=== PATIENT | female | born 1935 | race Caucasian/White ===

== ENCOUNTER 2016-10-08 14:44 | Emergency (ER) | payer OTHER ==
[2016-10-08] MEDS ORDERED: B & O 15A SUPP PR ONE (15:40)
[2016-10-08] MEDS ORDERED: PYRIDIUM PO ONE (15:41)
[2016-10-08 15:43] LABS: MANUAL DIFF NEEDED? NO; URINE SOURCE CATH
--- NOTE | 2016-10-08 15:46 | PROVIDER DOCUMENTATION ---
HPI-Female /OB/Breast - General Chief Complaint: Abdominal Pain Stated Complaint: BLADDER INFECTION Time Seen by Provider: 10/08/16 15:08 Source: reports: patient, family Allergies/Adverse Reactions: Patient Allergies Allergy/AdvReac Type Severity Reaction Status Date / Time codeine [Codeine] Allergy Severe ITCHING Verified 10/08/16 15:16 Penicillins Allergy Severe RASH Verified 10/08/16 15:16 Home Medications: Home Medication List Medication Instructions Recorded Confirmed Last Taken Type Atenolol [Tenormin] 100 mg PO QAM 03/06/16 10/08/16 10/08/16 History Cyclobenzaprine [Flexeril] 5 mg PO BID 03/06/16 10/08/16 10/08/16 History Diltiazem HCl [Cardizem] 120 mg PO QAM 03/06/16 10/08/16 10/08/16 History Losartan Potassium [Cozaar] 50 mg PO QAM 03/06/16 10/08/16 10/08/16 History Tolterodine [Detrol] 2 mg PO BID 03/06/16 10/08/16 10/08/16 History Triamterene/Hctz [Dyazide] 1 each PO DAILY 03/06/16 10/08/16 10/08/16 History Amlodipine [Norvasc] 10 mg PO DAILY #90 tablet 03/09/16 10/08/16 10/08/16 Rx Aspirin 325 mg PO DAILY #30 tablet 03/09/16 10/08/16 10/08/16 Rx Omeprazole [Prilosec] 20 mg PO DAILY@0700 #90 capsule 03/09/16 10/08/16 Rx Rivaroxaban [Xarelto] 20 mg PO DAILY #30 tablet 03/09/16 10/08/16 10/08/16 Rx Levofloxacin [Levaquin] 500 mg PO DAILY #6 tablet 10/08/16 Unknown Rx Phenazopyridine [Pyridium] 100 mg PO BID #10 tablet 10/08/16 Unknown Rx - History of Present Illness-Female /OB Nature of Presenting Problem: 81 yo WF woke up this morning with severe burning dysria and bladder spasm. No UTI in 'years.' Denies fever or back pain Location of complaint: reports: suprapubic Radiation: reports: none Quality of Pain: reports: burning, cramping Severity in ED: reports: moderate Onset/Duration: reports: this morning Timing: reports: still present Context/Activities at Onset: reports: none Vaginal Symptoms: reports: itching. denies: discharge Vaginal Bleeding Amount: None Urinary Symptoms: reports: dysuria, frequency. denies: low back pain Sexual intercourse history: reports: Not Active Modifying Factors: improves with: nothing Associated Symptoms: reports: nausea. denies: back/neck pain, cough, fever/ chills Similar Symptoms Previously?: No Recently seen or treated by another doctor?: No Review of Systems - Adult - REVIEW OF SYSTEMS - ADULT Constitutional: reports: no symptoms reported Eyes: reports: no symptoms reported Ears, Nose, Mouth & Throat: reports: no symptoms reported Cardiovascular: reports: no symptoms reported Respiratory: reports: no symptoms reported Gastrointestinal: reports: no symptoms reported Genitourinary: reports: see HPI, dysuria, urgency. denies: discharge, flank pain Musculoskeletal: reports: no symptoms reported Integumentary: reports: no symptoms reported Neurological: reports: no symptoms reported Psychiatric: reports: no symptoms reported Endocrine: reports: no symptoms reported Hematologic/Lymphatic: reports: no symptoms reported Allergic/Immunologic: reports: no symptoms reported All Other Systems: Reviewed and Negative Past History - Adult - PAST MEDICAL HISTORY-ADULT Review of Records: reports: Old Records Reviewed, Nursing Assessment Review, Medications Reviewed, Social history reviewed & non-contributory. Major Childhood Illnesses: reports: denies history Cardiovascular: reports: HTN, pacemaker Psychiatric: reports: denies history Endocrine/Immune: reports: denies history, thyroid disorder - PRIOR SURGERIES/PROCEDURES Surgical/Procedure History: reports: hysterectomy, other (right eye catarct removal ) - IMMUNIZATION STATUS Childhood Immunizations: See Nurse Assessment Flu Vaccine: See Nurse Assessment - FAMILY HISTORY Family History: reviewed, not pertinent - SOCIAL HISTORY Smoking: denies Substance Use: none/never Alcohol Use Frequency: never Living Situation: family Physical Exam-General - PHYSICAL EXAM-ADULT Initial Vital Signs Reviewed: Yes - CONSTITUTIONAL General Appearance: moderate distress - EYES Eyes: PERRL/EOMI, pink conjunctivae - HEAD, EARS, NOSE, MOUTH & THROAT HENMT: moist mucous membranes - NECK Neck: non-tender, full range of motion - RESPIRATORY Respiratory: lungs clear, normal breath sounds, no pleuratic chest pain, no respiratory distress, no accessory muscle use - CARDIOVASCULAR Cardiovascular: normal peripheral pulses, regular rate, rhythm, no edema - GASTROINTESTINAL (ABDOMEN) Abdominal Exam: normal bowel sounds, tenderness (suprapubic) - MUSCULOSKELETAL Back Exam: no CVA tenderness, no vertebral tenderness Extremity: non-tender, no pedal edema - SKIN Integumentary: normal color - NEUROLOGIC Neurologic: grossly normal - PSYCHIATRIC Psych/Mental Status: normal mood/affect, oriented x 3 Progress - PLAN OF CARE/RESULTS Progress/Plan/Lab Results: Vital Signs Temp Pulse Resp BP Pulse Ox 10/08/16 16:28 97.4 F L 73 20 101/74 100 10/08/16 14:50 98.0 F 85 20 129/75 100 codeine [Codeine] Allergy (Severe, Verified 10/08/16 15:16) ITCHING Penicillins Allergy (Severe, Verified 10/08/16 15:16) RASH itch Atenolol [Tenormin] 100 mg PO QAM 03/06/16 Cyclobenzaprine [Flexeril] 5 mg PO BID 03/06/16 Diltiazem HCl [Cardizem] 120 mg PO QAM 03/06/16 Losartan Potassium [Cozaar] 50 mg PO QAM 03/06/16 Tolterodine [Detrol] 2 mg PO BID 03/06/16 Triamterene/Hctz [Dyazide] 1 each PO DAILY 03/06/16 Amlodipine [Norvasc] 10 mg PO DAILY #90 tablet 03/09/16 Aspirin 325 mg PO DAILY #30 tablet 03/09/16 Omeprazole [Prilosec] 20 mg PO DAILY@0700 #90 capsule 03/09/16 Rivaroxaban [Xarelto] 20 mg PO DAILY #30 tablet 03/09/16 Dietary Diet NPO Start Sun Oct 08 1452 I&O 10/07/16 10/08/16 10/09/16 07:59 07:59 07:59 Output Total 20 Balance -20 Laboratory 10/08/16 10/08/16 10/08/16 15:25 15:25 15:25 WBC 12.41 H RBC 4.29 Hgb 10.5 L Hct 31.9 L MCV 74.4 L MCH 24.5 L MCHC 32.9 L RDW Std Deviation 15.7 H Plt Count 431 H MPV 9.2 Immature Gran % (Auto) 0.3 Neut % (Auto) 70.8 Lymph % (Auto) 16.6 L [place] % (Auto) 10.7 H Eos % (Auto) 1.2 Baso % (Auto) 0.4 Immature Gran # (Auto) 0.04 Neut # (Auto) 8.78 H Lymph # (Auto) 2.06 [place] # (Auto) 1.33 H Eos # (Auto) 0.15 Baso # (Auto) 0.05 Sodium 127 L Potassium 4.6 Chloride 87 L Carbon Dioxide 23 L Anion Gap 17 BUN 19 Creatinine 1.6 H Estimated GFR/1.73 m2 31 BUN/Creatinine Ratio 12 Glucose 108 H Calculated Osmolality 258 Calcium 8.4 L Total Bilirubin 0.33 AST 15 ALT 9 L Alkaline Phosphatase 96 Total Protein 6.9 Albumin 3.6 Globulin 3.3 Albumin/Globulin Ratio 1.1 Amylase 118 Lipase 88 H Urine Source CATH Urine Color YELLOW Urine Turbidity HAZY Urine pH 6.5 Ur Specific [place] 1.020 Urine Protein 30 A Ur Glucose (Stick) NEGATIVE Ur Ketones (Stick) NEGATIVE Urine Blood NEGATIVE Urine Nitrite POSITIVE A Urine Bilirubin NEGATIVE Urobilinogen Dipstick NORMAL Urine Leukocytes LARGE A Urine WBC (Auto) TNTC A Urine RBC (Auto) <10 U Epithel Cells (Auto) <10 Urine Bacteria (Auto) 4+ Urine Crystals NONE SEEN Small Round Cells NONE SEEN Urine Casts NONE SEEN Urine Yeast-like Cells PRESENT 1615 Still hurting. 1703 reviewed labs. Will give NS 1740 Spasms disappeared. Wants to go home Departure - Departure Time of Disposition Order: 17:39 DIAGNOSIS: Acute cystitis Qualifiers: Hematuria presence: without hematuria Qualified Code(s): N30.00 - Acute cystitis without hematuria Disposition: HOME 01 Certified Medical Emergency: Emergent Condition: Stable Additional Instructions: Push PO fluids Follow up with Dr. Abel about blood count/anemia Prescriptions: Levofloxacin [Levaquin] 500 mg PO DAILY #6 tablet Phenazopyridine [Pyridium] 100 mg PO BID #10 tablet
[2016-10-08 15:53] LABS: HEMATOCRIT 31.9 % (37.0-47.0); HEMOGLOBIN 10.5 g/dL (12.0-16.0); IMM GRAN% 0.3 % (0.0-0.5); LYMPH% 16.6 % (20.5-51.1); MCH 24.5 PG (27-31); MCHC 32.9 g/dL (33-37); MCV 74.4 FL (81-99); MONO% 10.7 % (1.7-9.3); MPV 9.2 FL (7.4-10.4); NEUT% 70.8 % (42.2-75.2); PLT 431 X1000 (130-400); RBC 4.29 XMIL (4.2-5.4)
[2016-10-08 15:54] LABS: BASO% 0.4 % (0.0-0.8); EOS% 1.2 % (0.0-10.0); LYMPH# 2.06 X1000 (1.2-3.4); MONO# 1.33 X1000 (0.11-0.59)
[2016-10-08 15:55] LABS: EOS# 0.15 X1000 (0.0-0.7); IMM GRAN# 0.04 X1000 (0.0-0.04)
[2016-10-08 15:59] LABS: BILIRUBIN URINE NEGATIVE (NEGATIVE); BLOOD URINE NEGATIVE (NEGATIVE); COLOR YELLOW; GLUCOSE URINE NEGATIVE (NEGATIVE); LEUKOCYTES URINE LARGE (NEGATIVE); NITRITE URINE POSITIVE (NEGATIVE); PH URINE 6.5; PROTEIN URINE 30 mg/dL (NEGATIVE); TURBIDITY URINE HAZY (CLEAR); UROBILINOGEN URINE NORMAL (NORMAL)
[2016-10-08 16:01] LABS: URINE MICRO REVIEW NEEDED? YES
[2016-10-08 16:08] LABS: UR EPITHELIAL CELLS <10 /HPF (<10); URINE BACTERIA 4+ /HPF; URINE RBC <10 /HPF (<10); URINE WBC TNTC /HPF (<10)
[2016-10-08] MEDS ORDERED: LEVAQUIN PO ONE (16:11)
[2016-10-08 16:28] LABS: ALBUMIN 3.6 g/dL (3.5-5.0); CALCIUM 8.4 mg/dL (8.8-10.2); POTASSIUM 4.6 mmol/L (3.5-5.1); TOTAL BILIRUBIN 0.33 mg/dL (0.20-1.00); TOTAL PROTEIN 6.9 g/dL (6.3-8.3)
[2016-10-08 16:29] LABS: URINE CASTS NONE SEEN; URINE CRYSTALS NONE SEEN; URINE SMALL ROUND CELLS NONE SEEN
[2016-10-08 16:33] LABS: URINE CULTURE NEEDED? YES
[2016-10-08] MEDS ORDERED: NS 500 ML IV ONE (16:50)
[2016-10-08] MEDS ORDERED: NS 1,000 ML IV ONE (17:02)
[2016-10-08 17:53] VITALS: BP 110/58
== END 2016-10-08 18:26 | disposition home or self-care (01) ==
LOC: ED 14:44
DX: N30.00 Acute cystitis without hematuria (principal); R30.0 Dysuria; N32.89 Other specified disorders of bladder; R35.0 Frequency of micturition; R11.0 Nausea; R39.15 Urgency of urination; R10.9 Unspecified abdominal pain; R10.819 Abdominal tenderness, unspecified site; Z79.899 Other long term (current) drug therapy; I10 Essential (primary) hypertension; Z79.01 Long term (current) use of anticoagulants; Z79.82 Long term (current) use of aspirin; Z95.0 Presence of cardiac pacemaker
CPT/HCPCS: 80053; 81001; 82150; 83690; 85025; 87077; 87088; 87186; J7040

== ENCOUNTER 2016-10-09 18:36 | Emergency (ER) | payer OTHER ==
[2016-10-09 19:45] LABS: BASO% 0.3 % (0.0-0.8); EOS# 0.08 X1000 (0.0-0.7); EOS% 0.8 % (0.0-10.0); HEMATOCRIT 29.8 % (37.0-47.0); HEMOGLOBIN 9.8 g/dL (12.0-16.0); LYMPH# 2.91 X1000 (1.2-3.4); LYMPH% 29.4 % (20.5-51.1); MANUAL DIFF NEEDED? NO; MCH 24.1 PG (27-31); MCHC 32.9 g/dL (33-37); MCV 73.2 FL (81-99); MONO% 11.1 % (1.7-9.3); MPV 9.1 FL (7.4-10.4); NEUT% 58.4 % (42.2-75.2); PLT 409 X1000 (130-400); RBC 4.07 XMIL (4.2-5.4)
[2016-10-09 20:14] LABS: ALBUMIN 3.5 g/dL (3.5-5.0); CALCIUM 8.9 mg/dL (8.8-10.2); POTASSIUM 3.6 mmol/L (3.5-5.1); TOTAL BILIRUBIN 0.34 mg/dL (0.20-1.00); TOTAL PROTEIN 6.7 g/dL (6.3-8.3)
[2016-10-09] MEDS ORDERED: LEVAQUIN PO ONE (21:33)
[2016-10-09 21:34] LABS: URINE SOURCE CLEAN CATCH
[2016-10-09] MEDS ORDERED: ZOFRAN ODT PO ONE (21:40)
[2016-10-09 21:44] LABS: BILIRUBIN URINE MODERATE (NEGATIVE); BLOOD URINE NEGATIVE (NEGATIVE); COLOR BROWN; GLUCOSE URINE NEGATIVE (NEGATIVE); LEUKOCYTES URINE SMALL (NEGATIVE); NITRITE URINE POSITIVE (NEGATIVE); PROTEIN URINE TRACE mg/dL (NEGATIVE); SP GRAVITY URINE 1.024; TURBIDITY URINE CLEAR (CLEAR); UR EPITHELIAL CELLS <10 /HPF (<10); URINE BACTERIA NEGATIVE /HPF; URINE CULTURE NEEDED? YES; URINE MICRO REVIEW NEEDED? YES; URINE RBC <10 /HPF (<10); URINE WBC TNTC /HPF (<10); UROBILINOGEN URINE 8 mg/dL (NORMAL)
[2016-10-09 21:55] LABS: URINE CASTS NONE SEEN; URINE CRYSTALS NONE SEEN; URINE SMALL ROUND CELLS NONE SEEN
--- NOTE | 2016-10-09 22:32 | PROVIDER DOCUMENTATION ---
HPI-Female /OB/Breast <Mark Hanna - Last Filed: 10/09/16 22:45> - General Source: reports: patient - History of Present Illness-Female /OB Does patient report she is ?: No Severity in ED: reports: moderate Onset/Duration: reports: 24 hours ago Timing: reports: still present Urinary Symptoms: reports: dysuria, dribbling, frequency Associated Symptoms: reports: nausea, vomiting Similar Symptoms Previously?: Yes Recently seen or treated by another doctor?: Yes <Char Rubio - Last Filed: 10/09/16 23:10> - General Chief Complaint: Return/Recheck Stated Complaint: ABD PAIN, VOMITING Time Seen by Provider: 10/09/16 20:56 Allergies/Adverse Reactions: Patient Allergies Allergy/AdvReac Type Severity Reaction Status Date / Time codeine [Codeine] Allergy Severe ITCHING Verified 10/09/16 21:34 Penicillins Allergy Severe RASH Verified 10/09/16 21:34 Home Medications: Home Medication List Medication Instructions Recorded Confirmed Last Taken Type Atenolol [Tenormin] 100 mg PO QAM 03/06/16 10/09/16 10/09/16 History Losartan Potassium [Cozaar] 50 mg PO QAM 03/06/16 10/09/16 10/09/16 History Triamterene/Hctz [Dyazide] 1 each PO DAILY 03/06/16 10/09/16 10/09/16 History Amlodipine [Norvasc] 10 mg PO DAILY #90 tablet 03/09/16 10/09/16 10/09/16 Rx Aspirin 325 mg PO DAILY #30 tablet 03/09/16 10/09/16 10/09/16 Rx Rivaroxaban [Xarelto] 20 mg PO DAILY #30 tablet 03/09/16 10/09/16 10/09/16 Rx - History of Present Illness-Female /OB Nature of Presenting Problem: 81 year old F presents to the ED with a cc of a UTI. PT states that she was seen yesterday and diagnosed with a UTI. PT was given 500 of Levaquin PO. Today pt felt worse with nausea and vomiting. PT vomited up second dose of Levaquin. Pt states that she feels some better than she did. Family is concerned about pt urinating every 15 minutes. (Char Rubio) Review of Systems - Adult - REVIEW OF SYSTEMS - ADULT Constitutional: denies: chills, fever Eyes: reports: no symptoms reported Ears, Nose, Mouth & Throat: reports: no symptoms reported Cardiovascular: denies: chest pain, palpitations Respiratory: denies: cough, shortness of breath Gastrointestinal: reports: nausea, vomiting. denies: abdominal pain Genitourinary: reports: dysuria, frequency, other (dribbling) Musculoskeletal: denies: back pain, muscle weakness Integumentary: reports: no symptoms reported Neurological: reports: no symptoms reported Psychiatric: reports: no symptoms reported Endocrine: reports: no symptoms reported Hematologic/Lymphatic: reports: no symptoms reported Allergic/Immunologic: reports: no symptoms reported All Other Systems: Reviewed and Negative <Char Rubio - Last Filed: 10/09/16 23:10> Past History - Adult - PAST MEDICAL HISTORY-ADULT Review of Records: reports: Nursing Assessment Review, Medications Reviewed Major Childhood Illnesses: reports: denies history Cardiovascular: reports: HTN, pacemaker Psychiatric: reports: denies history Endocrine/Immune: reports: thyroid disorder - PRIOR SURGERIES/PROCEDURES Surgical/Procedure History: reports: hysterectomy, other (right eye catarct removal ) - IMMUNIZATION STATUS Childhood Immunizations: See Nurse Assessment Flu Vaccine: See Nurse Assessment - FAMILY HISTORY Family History: reviewed, not pertinent - SOCIAL HISTORY Smoking: non-smoker Substance Use: none/never Alcohol Use Frequency: occasionally <Char Rubio - Last Filed: 10/09/16 23:10> Physical Exam-General - PHYSICAL EXAM-ADULT Initial Vital Signs Reviewed: Yes - CONSTITUTIONAL General Appearance: appears well, alert, no apparent distress - RESPIRATORY Respiratory: chest non-tender, lungs clear, normal breath sounds - CARDIOVASCULAR Cardiovascular: normal peripheral pulses, regular rate, rhythm, no edema - GASTROINTESTINAL (ABDOMEN) Abdominal Exam: normal bowel sounds, soft, tenderness (suprapubic) - MUSCULOSKELETAL Extremity: normal inspection - SKIN Integumentary: normal color, normal turgor, warm/dry - PSYCHIATRIC Psych/Mental Status: normal mood/affect, normal thought content, normal thought process, oriented x 3 <Char Rubio - Last Filed: 10/09/16 23:10> Progress <Mark Hanna - Last Filed: 10/09/16 22:45> <Char Rubio - Last Filed: 10/09/16 23:10> - PLAN OF CARE/RESULTS Progress/Plan/Lab Results: plan of care: labs, medications Orders Category Date Time Status CBC WITH ELECTRONIC DIFF [HEME] Stat Lab 10/09/16 19:01 Completed COMPREHENSIVE METABOLIC PANEL [CHEM] Stat Lab 10/09/16 19:01 Completed UA Reflex [URINALYSIS W/POSS RFLX CULT] [URINALYSIS] Lab 10/09/16 21:24 Completed Stat URINE CULTURE [RM] Routine Lab 10/09/16 21:45 Received URINE MANUAL MICROSCOPIC [URINALYSIS] Stat Lab 10/09/16 21:24 Completed CefTRIAXONE [Rocephin] Med 10/09/16 22:43 Discontinued 1 gm IM NOW ONE Levofloxacin [Levaquin] Med 10/09/16 21:33 Discontinued 250 mg PO NOW ONE Lidocaine 1% Pf [Xylocaine-Mpf 1%] Med 10/09/16 22:43 Discontinued 5 ml INJ NOW ONE Ondansetron Odt [Zofran Odt] Med 10/09/16 21:40 Discontinued 4 mg PO NOW ONE Laboratory Tests 10/09/16 10/09/16 10/09/16 19:01 19:01 21:24 WBC 9.90 RBC 4.07 L Hgb 9.8 L Hct 29.8 L MCV 73.2 L MCH 24.1 L MCHC 32.9 L RDW Std Deviation 15.5 H Plt Count 409 H MPV 9.1 Immature Gran % (Auto) 0.0 Neut % (Auto) 58.4 Lymph % (Auto) 29.4 [place] % (Auto) 11.1 H Eos % (Auto) 0.8 Baso % (Auto) 0.3 Immature Gran # (Auto) 0.00 Neut # (Auto) 5.78 Lymph # (Auto) 2.91 [place] # (Auto) 1.10 H Eos # (Auto) 0.08 Baso # (Auto) 0.03 Sodium 128 L Potassium 3.6 D Chloride 88 L Carbon Dioxide 21 L Anion Gap 19 BUN 19 Creatinine 1.5 H Estimated GFR/1.73 m2 33 BUN/Creatinine Ratio 13 Glucose 90 Calculated Osmolality 259 Calcium 8.9 Total Bilirubin 0.34 AST 13 ALT 10 Alkaline Phosphatase 77 Total Protein 6.7 Albumin 3.5 Globulin 3.2 Albumin/Globulin Ratio 1.1 Urine Source CLEAN CATCH Urine Color BROWN Urine Turbidity CLEAR Urine pH 6.0 Ur Specific [place] 1.024 Urine Protein TRACE A Ur Glucose (Stick) NEGATIVE Ur Ketones (Stick) NEGATIVE Urine Blood NEGATIVE Urine Nitrite POSITIVE A Urine Bilirubin MODERATE A Urobilinogen Dipstick 8 A Urine Leukocytes SMALL A Urine WBC (Auto) TNTC A Urine RBC (Auto) <10 U Epithel Cells (Auto) <10 Urine Bacteria (Auto) NEGATIVE Urine Crystals NONE SEEN Small Round Cells NONE SEEN Urine Casts NONE SEEN Urine Yeast-like Cells NONE SEEN Vital Signs - 24 hr 10/09/16 18:51 Temperature 97.4 F L Pulse Rate 72 Respiratory 18 Rate Blood Pressure 123/53 O2 Sat by Pulse 99 Oximetry Pt given results and will be d/c home w/o rx to follow up with PCP. Pt verbally understood instructions. PT remained clinically stable throughout the course of the ED stay and will return if symptoms worsen. (Char Rubio) Departure - Departure Time of Disposition Order: 23:07 Certified Medical Emergency: Emergent <Mark Hanna - Last Filed: 10/09/16 22:45> <Char Rubio - Last Filed: 10/09/16 23:10> - Departure DIAGNOSIS: Acute cystitis Qualifiers: Hematuria presence: with hematuria Qualified Code(s): N30.01 - Acute cystitis with hematuria Disposition: HOME 01 Referrals: Raven Abel MD [Primary Care Provider] - Attestation - Scribe Verification/Attestation Scribe:: Char Rubio Acting as Scribe for:: Mark Hanna Scribe documention review:: This chart was documented by a scribe and accurately reflects the service the provider performed and the decisions made by the provider. <Char Rubio - Last Filed: 10/09/16 23:10> Physician Attestation - Physician Attestation I, the provider, attest to the following statement:: Mark Hanna Physician documentation Attestation:: This documentation recorded by the scribe accurately reflects the service I personally performed and the decisions made by me. <Char Rubio - Last Filed: 10/09/16 23:10>
[2016-10-09] MEDS ORDERED: ROCEPHIN IM ONE (22:43)
[2016-10-09] MEDS ORDERED: XYLOCAINE-MPF 1% INJ ONE (22:43)
[2016-10-09 23:36] VITALS: BP 156/78
== END 2016-10-09 23:37 | disposition home or self-care (01) ==
LOC: ED 18:36
DX: N30.01 Acute cystitis with hematuria (principal); R30.0 Dysuria; R35.0 Frequency of micturition; R11.2 Nausea with vomiting, unspecified; R10.9 Unspecified abdominal pain; R10.819 Abdominal tenderness, unspecified site; I10 Essential (primary) hypertension; Z79.01 Long term (current) use of anticoagulants; Z79.899 Other long term (current) drug therapy; Z79.82 Long term (current) use of aspirin
CPT/HCPCS: 80053; 81001; 85025; 87088; J0696